=== PATIENT | female | born 1975 | race Caucasian/White ===

== ENCOUNTER 2019-12-02 09:32 | Emergency (ER) | payer OTHER, SELFPAY ==
[2019-12-02 09:32] VITALS: BP 144/95; BP 156/94; PULSE 59; PULSE 66; RESP 16; TEMP 36.1; O2SAT 100; BMI 27.1
--- NOTE | 2019-12-02 09:43 | CT_ITS ---
STUDY: CT ABDOMEN AND PELVIS WITH CONTRAST REASON FOR EXAM: Female, 44 years old. LLQ PAIN, NAUSEA SINCE 7 AM RADIATION DOSAGE (If Supplied By Facility): CTDIvol = ( 12.17 ) mGy, DLP = ( 543.15 ) mGycm TECHNIQUE: Transaxial images were obtained from the dome of the diaphragm to the symphysis pubis with oral contrast. Oral and amp; IV Gastrografin and amp; 100mL Isovue-300 was administered. Sagittal and coronal images were reconstructed. Individualized dose optimization techniques were used for this CT. COMPARISON: None. FINDINGS: Minimal increased markings at the lung bases suggestive of mild bibasilar atelectasis. The visualized portions of the heart are within normal limits. There is a 1.5 cm x 1 cm well-defined hypodense nodule suggestive of a cyst in the medial aspect of the right lobe of the liver adjacent to the inferior vena cava. A similar-appearing nodular density measuring 1.1 cm x 1.1 cm is seen along the peripheral anterior aspect of the right lobe of the liver adjacent to the falciform ligament. Mild degree of periportal edematous changes in the liver. Normal gallbladder and extrahepatic biliary system. Normal spleen. Normal pancreas. Normal bilateral adrenal glands. Normal right kidney. Small perinephric fluid collection. Mild left hydronephrosis and nodular due to a 2 mm calculus at the left ureterovesical junction as it enters the urinary bladder. Normal visualized stomach. Normal small intestine. Normal colon. The appendix is visualized and appears normal. Normal abdominal aorta. Normal inferior vena cava. Normal retroperitoneum. Normal urinary bladder. Small follicles are seen in the left ovary. Prominent vascular structures are seen surrounding the uterus more prominent on the left side. There is a small umbilical hernia containing fat. Normal osseous structures. CT/Abdomen/Pelvis WITH Contrast IMPRESSION: Mild degree of left hydronephrosis and hydroureter due to a 2 mm calculus at the left ureterovesical junction as it enters the urinary bladder. Mild degree of the left perinephric fluid collection. 2. Cystic nodules are seen in the right lobe of the liver as described. Mild degree of periportal edematous changes. Electronically Signed: Pierre Abreu, at 12:07 EDT , Service support ,
--- NOTE | 2019-12-02 09:45 | ED.DCSUM_ITS ---
History of Present Illness Chief Complaint: Abd Pain Narrative: Patient is a 44-year-old female who presents with abdominal pain. This began a few hours before presentation. She complains of mid left and left lower quadrant abdominal pain. She also complains of diarrhea. She describes her pain as a base-like pressure-like pain with episodes of severe cramping that radiates through the rest of the abdomen. This does not radiate into the back. She denies urinary symptoms such as dysuria or frequency. She denies history of prior similar symptoms. She does report a history of tubal ligation no other abdominal surgeries. She denies fever. She does complain of nausea without vomiting. Past Medical History - Allergies and Home Meds Allergies/Adverse Reactions: Allergies No Known Allergies Allergy (Verified 12/02/19 09:34) Past Medical History: None Surgical History: - - tubal ligation Review of Systems All systems negative except as indicated General: Denies: Fever Eyes: Denies: Visual changes - bilaterally Cardiovascular: Denies: Chest pain Respiratory: Denies: Dyspnea Gastrointestinal: Reports: Abdominal pain, Nausea, Diarrhea. Denies: Vomiting Musculoskeletal: Denies: Myalgias, Arthralgias Skin: Denies: Rash Neurological: Denies: Headache Hematologic: Denies: Easy bruising Allergy: Denies: Uticaria Physical Exam Vital Signs/Narrative: Vital Signs Temp Pulse Resp BP Pulse Ox 12/02/19 09:32 96.9 F L 59 L 16 156/94 H 100 Inital Vital Signs reviewed: Yes General: Well nourished Head: Normocephalic Eyes: EOMI ENT: Moist mucous membranes Neck: Supple Cardiovascular: Regular rate, Regular rhythm Respiratory: No distress, CTA bilaterally Abdomen: Soft, Nondistended, Tender, - - Patient does have mid left sided and left lower quadrant abdominal tenderness no guarding no rebound. She is nondistended. Negative for: Nontender, Guarding, Rebound tenderness Skin: Normal color Neurological: Alert Psychological: Normal affect Diagnostic/Tx/Re-eval Impressions Abdomen/Pelvis CT 12/02/19 09:43 IMPRESSION: Mild degree of left hydronephrosis and hydroureter due to a 2 mm calculus at the left ureterovesical junction as it enters the urinary bladder. Mild degree of the left perinephric fluid collection. 2. Cystic nodules are seen in the right lobe of the liver as described. Mild degree of periportal edematous changes. Electronically Signed: Pierre Abreu, at 12:07 EDT , Service support , 12/02/19 09:43 Abdomen/Pelvis WITH Contrast [CT] Stat Laboratory Results 12/02/19 12/02/19 12/02/19 10:00 10:00 10:28 WBC 16.1 H RBC 4.87 Hgb 13.2 Hct 41.1 MCV 84.4 MCH 27.1 MCHC 32.1 RDW Std Deviation 44.4 H RDW Coeff of Chris 14.6 Plt Count 326 MPV 8.8 Immature Gran % (Auto) 0.600 Neut % (Auto) 84.7 H Lymph % (Auto) 9.2 L [place] % (Auto) 5.0 Eos % (Auto) 0.2 Baso % (Auto) 0.3 Absolute Neuts (auto) 13.6 H Absolute Lymphs (auto) 1.48 Nucleated RBC % 0 Sodium 140 Potassium 3.8 Chloride 108 H Carbon Dioxide 27.0 Anion Gap 5 BUN 14 Creatinine 0.93 Estim Creat Clear Calc 71.11 Est GFR (MDRD) Af Amer 84 Est GFR (MDRD) Non-Af 69 BUN/Creatinine Ratio 15.1 Glucose 110 H Calcium 9.7 Total Bilirubin 0.50 AST 24 ALT 26 Alkaline Phosphatase 66 Total Protein 7.9 Albumin 4.1 Globulin 3.8 Albumin/Globulin Ratio 1.1 Lipase 128 Urine Color Straw Urine Clarity Sl. Cloudy Urine pH 8.0 Ur Specific [place] 1.015 Urine Protein 15 H Urine Glucose (UA) Normal Urine Ketones 50 H Urine Occult Blood Negative Urine Nitrite Negative Urine Bilirubin Negative Urine Urobilinogen Normal Ur Leukocyte Esterase 25 H Urine RBC 0 SEEN Urine WBC 0-5 SEEN Ur Squamous Epith Cells 0-5 SEEN Urine Bacteria 2+ Urine Mucus 0 SEEN - Medical Decision Making Patient was symptomatically treated with IV fluids, morphine, and Zofran. Initial differential included colonic pathology such as colitis or diverticulitis as well as urinary pathology such as ureterolithiasis. She underwent the above diagnostic work-up including laboratory studies and CT imaging. CT imaging does show a 2 mm distal left UVJ calculus. Patient was given a second dose of morphine and pain returned. After CT imaging results returned she was given IV Toradol with market relief of symptoms. She currently rates that her pain is at a tolerable level and she does feel she can manage at home. She does have bacteriuria although she does not have pyuria. Given her leukocytosis we will treat for possible infection as well. Patient was prescribed Bactrim and Percocet and referred to urology. She was instructed on specific signs and symptoms to monitor for and conditions which should prompt immediate return to the emergency department for reevaluation. Otherwise she can follow-up as an outpatient. Patient and family agreeable to this plan and the patient was discharged. ED Disposition - Plan for ED Patient: Disposition: Home or Assisted Living Diagnosis: Ureterolithiasis Instructions: ED Renal Stone w Colic Prescriptions: Smz/Tmp Ds [Bactrim Ds] 1 tab PO BID #14 tab Prescription Printed Oxycodone HCl/Acetaminophen [Percocet 5/325] 1 tab PO Q6H PRN PRN 3 Days #12 tab PRN Reason: Pain Prescription Printed
[2019-12-02] MEDS: 0.9% Normal Saline 1,000 ML 1000 ML IV (09:55)
[2019-12-02] MEDS: Ondansetron 4 MG/2 ML Vial IV (09:58)
[2019-12-02] MEDS: Morphine 4 MG/ML Syringe IV ×2 (09:58→10:37)
[2019-12-02 10:12] LABS: Absolute Lymphocyte Count 1.48 X10^3/uL (0.83-4.51); Absolute Neutrophil Count 13.6 X10^3/uL (2.0-7.7); Basophil# 0.05 X10^3/uL; Basophil% 0.3 % (0-1); Eosinophil# 0.04 X10^3/uL; Eosinophils% 0.2 % (0-5); Hematocrit 41.1 % (37-47); Hemoglobin 13.2 g/dL (12.0-15.0); Lymphocyte # 1.48 X10^3/ul (4.0); Lymphocyte % 9.2 % (19-41); Mean Corp Hgb Conc 32.1 g/dL (32-36); Mean Corpuscular Hgb 27.1 pg (27.0-32.0); Mean Corpuscular Volume 84.4 fL (81-99); Mean Platelet Vol. 8.8 fl (6.2-12.0); NRBC Flagged by Analyzer 0 % (0-5); Neutrophil % 84.7 % (47-70); Platelet Count 326 K/mm3 (150-450); RBC Distribution Width CV 14.6 % (11.6-14.6); RBC Distribution Width SD 44.4 fl (35.1-43.9); Red Blood Count 4.87 M/mm3 (4.2-5.4); White Blood Count 16.1 K/mm3 (4.4-11.0)
[2019-12-02 10:27] LABS: ALB/GLOB Ratio 1.1 RATIO (0.9-2.4); AST(SGOT) 24 U/L (15-37); Alanine Aminotransfer ALT/SGPT 26 U/L (13-56); Albumin, Serum 4.1 g/dL (3.2-5.0); Alkaline Phosphatase 66 U/L (45-117); Anion Gap 5 (5-15); BUN 14 mg/dL (7-18); BUN/Creat Ratio 15.1 RATIO (10-20); Calcium,Total 9.7 mg/dL (8.5-10.1); Chloride 108 mmol/L (98-107); Creatinine, Serum 0.93 mg/dL (0.55-1.02); EST Glomerular Filtration Rate 69 mL/min (>60); Est Glom Filt Rate - Afr Amer 84 mL/min (>60); Estimated Creatinine Clearance 71.11 ml/min; Globulin 3.8 g/dL (2.2-4.2); Glucose 110 mg/dL (74-106); Lipase 128 U/L (73-393); Potassium 3.8 mmol/L (3.5-5.1); Protein, Total 7.9 g/dL (6.4-8.2); Sodium Level 140 mmol/L (136-145)
[2019-12-02 10:32] VITALS: BP 162/86; PULSE 78; RESP 16; TEMP 36.7; O2SAT 100
[2019-12-02 10:34] LABS: Mucous, Urine 0 SEEN /hpf (<or=2+); Red Blood Cells-Urine 0 SEEN /hpf (0-5)
[2019-12-02 10:38] LABS: Color, Urine Straw (Yellow); Glucose, Dipstick Normal (Normal); Ketone-Dipstick 50 mg/dl (Negative); Leukocyte Esterase-Dipstick 25 /ul (Negative); Nitrite-Dipstick Negative (Negative); Occult Blood-Urine Negative /ul (Negative); Protein-Dipstick 15 mg/dl (Negative); Specific Gravity, Urine 1.015 (1.002-1.030); Urine Bilirubin Dipstick Negative (Negative); Urine Clarity Sl. Cloudy (Clear); Urine Urobilinogen Normal (Normal)
[2019-12-02 11:07] LABS: Bacteria 2+ /hpf (None Seen); Squamous Epithelial Cells - UA 0-5 SEEN /hpf (5-10); White Blood Cells 0-5 SEEN /hpf (0-5)
[2019-12-02 11:32] VITALS: BP 155/74; PULSE 82; RESP 16; TEMP 36.5; O2SAT 100
[2019-12-02] MEDS: Ketorolac 30 MG/ML Syringe IV (12:48)
--- NOTE | 2019-12-02 13:14 | ED.DEP ---
ED Disposition - Plan for ED Patient: Disposition: Home or Assisted Living Diagnosis: Ureterolithiasis Instructions: ED Renal Stone w Colic Prescriptions: Smz/Tmp Ds [Bactrim Ds] 1 tab PO BID #14 tab Prescription Printed Oxycodone HCl/Acetaminophen [Percocet 5/325] 1 tab PO Q6H PRN PRN 3 Days #12 tab PRN Reason: Pain Prescription Printed Referrals: Care Physician,No Primary [Primary Care Provider] - Ant Muñoz MD [STAFF PHYSICIAN] -
[2019-12-02 13:21] VITALS: BP 133/81; PULSE 82; RESP 16; O2SAT 100
== END 2019-12-02 13:22 | disposition home or self-care (01) ==
PROVIDERS: Emergency Provider Emergency Medicine
DX: N20.1 Calculus of ureter (principal)
CPT/HCPCS: 74177; 80053; 81001; 83690; 85025; 87086; 87088; 96374; 96375; 96376; 99283; J7030; Q9967; A4216; J2405

== ENCOUNTER → 2020-08-31 12:17 | Outpatient (CLI) | payer OTHER, SELFPAY ==
[2020-08-31 08:42] VITALS: BMI 26.5
[2020-09-02 14:16] LABS: HPV APTIMA, High Risk Negative (Negative)
== END ==
PROVIDERS: Referring Provider Nurse Practitioner Women's Health; Visit Provider Nurse Practitioner Women's Health
DX: Z12.4 Encounter for screening for malignant neoplasm of cervix (principal)
CPT/HCPCS: 87624; 88175; G0145

== ENCOUNTER → 2020-09-10 10:25 | Outpatient (CLI) | payer SELFPAY, OTHER ==
[2020-08-31 08:42] VITALS: BMI 26.5
--- NOTE | 2020-09-10 10:27 | US_ITS ---
STUDY: ULTRASOUND OF THE FEMALE PELVIS - COMPLETE REASON FOR EXAM: Female, 45 years old. bleeding LMP: 09/08/2020 TECHNIQUE: Transabdominal and Transvaginal TECHNICAL QUALITY: Adequate. COMPARISON: None. FINDINGS: The uterus is anteverted and is in a midline position. The uterus measures 9.0 x 5.2 x 4.6 cm. There is a Nabothian cyst of the cervix. The endometrium measures 3 mm in thickness, and is hyperechoic. There is no demonstrated endometrial mass. There is no demonstrated myometrial mass. I.U.D. - The patient does not have an I.U.D. The right ovary is visualized. The right ovary measures 2.9 x 1.8 x 1.1 cm. There is no right ovarian cyst or ovarian mass. There is no visualized right adnexal mass or complex lesion. There is normal arterial and normal venous vascularity. The left ovary is visualized. The left ovary measures 2.4 x 2.2 x 1.2 cm. There is no left ovarian cyst or ovarian mass. There is no visualized left adnexal mass or complex lesion. There is normal arterial and normal venous vascularity. There is no fluid in the cul-de-sac. The pre void volume of the bladder was ml. The post void volume of the bladder was ml. Polycystic ovary disease: No. US/Pelvic (Non ) IMPRESSION: Normal female pelvis. Electronically Signed: Fredy Rubio MD at 16:56 EDT Tel , Service support ,
--- NOTE | 2020-09-10 10:27 | US_ITS ---
STUDY: ULTRASOUND OF THE FEMALE PELVIS - COMPLETE REASON FOR EXAM: Female, 45 years old. bleeding LMP: 09/08/2020 TECHNIQUE: Transabdominal and Transvaginal TECHNICAL QUALITY: Adequate. COMPARISON: None. FINDINGS: The uterus is anteverted and is in a midline position. The uterus measures 9.0 x 5.2 x 4.6 cm. There is a Nabothian cyst of the cervix. The endometrium measures 3 mm in thickness, and is hyperechoic. There is no demonstrated endometrial mass. There is no demonstrated myometrial mass. I.U.D. - The patient does not have an I.U.D. The right ovary is visualized. The right ovary measures 2.9 x 1.8 x 1.1 cm. There is no right ovarian cyst or ovarian mass. There is no visualized right adnexal mass or complex lesion. There is normal arterial and normal venous vascularity. The left ovary is visualized. The left ovary measures 2.4 x 2.2 x 1.2 cm. There is no left ovarian cyst or ovarian mass. There is no visualized left adnexal mass or complex lesion. There is normal arterial and normal venous vascularity. There is no fluid in the cul-de-sac. The pre void volume of the bladder was ml. The post void volume of the bladder was ml. Polycystic ovary disease: No. US/Transvaginal Non- IMPRESSION: Normal female pelvis. Electronically Signed: Fredy Rubio MD at 16:56 EDT Tel , Service support ,
--- NOTE | 2020-09-10 11:15 | BI_ITS ---
MAMMOGRAPHY - BILATERAL SCREENING REASON FOR EXAM: Female, 45 years old. Routine annual screening examination. PERTINENT HISTORY: Non-contributory. TECHNIQUE: Digital bilateral breast attila (3D mammographic acquisition) in the CC and MLO projections. 2-D mediolateral oblique (MLO) and craniocaudad (CC) views of both breasts were obtained. CAD: Full Field Digital Mammography with Computer Added Detection was performed. COMPARISON: None. Baseline examination. FINDINGS: Breast Composition: The breasts are extremely dense, which lowers the sensitivity of mammography. There are no dominant masses or suspicious calcifications. No other significant abnormalities are identified. BI/SCRN MAMM (CAD)W/ATTILA BILAT IMPRESSION: Negative screening mammogram. Yearly followup mammogram recommended. (A) ASSESSMENT CATEGORY: BIRADS Category 1: Negative. A letter regarding these results will be sent to the patient by the facility within 30 days. Approximately 10% of breast cancers are not detected by mammography. A normal mammogram should not delay biopsy of a clinically suspicious abnormality. [id number] Electronically Signed: Pierre Abreu MD at 12:23 EDT , Service support ,
== END ==
PROVIDERS: Referring Provider Nurse Practitioner Women's Health; Visit Provider Nurse Practitioner Women's Health
DX: N92.0 Excessive and frequent menstruation with regular cycle (principal); N85.2 Hypertrophy of uterus; Z12.31 Encounter for screening mammogram for malignant neoplasm of breast
CPT/HCPCS: 76830; 76856; 77063; 77067

== ENCOUNTER 2024-04-10 18:28 | Observation (INO) | payer OTHER, SELFPAY ==
[2024-04-10] VITALS (13 sets, daily range): BP systolic 90–121; BP diastolic 60–98; PULSE 73–152; RESP 12–18; TEMP 36.8–37.5; O2SAT 93–100; BMI 30.1; BMI 32.5
--- NOTE | 2024-04-10 18:50 | EDS_ITS ---
HPI HPI - GI History of Present Illness Chief Complaint: Abd Pain Informant: patient and spouse/S.O. Narrative Narrative: 57-year-old female brought to the emergency department for the evaluation of fever and diarrhea. Patient states that since this morning she has had frequent diarrhea. She notes an intermittent fever has been taking Tylenol for that. She notes that she feels her heart racing. She states is very typical for her in the morning her heart rate to be normal but by the evening it is to be beating fast. She denies any vomiting. She notes pain on the left side of her abdomen that is now moved more towards the right side. She denies any urinary symptoms. She has been trying to orally hydrate. PFSH PFS Home Medications ?Medication ?Instructions ?Recorded ?Last Taken ?Type NK 04/10/24 Unknown History Allergy/AdvReac Type Severity Reaction Status Date / Time No Known Allergies Allergy Verified 04/10/24 18:29 Social History household members: spouse and children number of children: 6 current occupation: [employer] history of recent travel: No sexually active: Yes Smoking Status: Never smoker alcohol intake: never substance use type: does not use well-balanced diet: daily or most days what type of physical activity do you participate in: other frequency: 5-6 times per week seatbelt use: always do you feel safe at home: Yes additional social history: - Sandro SAL [facility]ORON ED Constitutional Constitutional ED: Reports chills and fever(s); Denies weight loss Eyes Eyes: Denies change in vision or diplopia ENT ENT ED: Denies ear pain, rhinorrhea or sore throat Cardiovascular Cardiovascular: Denies chest pain, orthopnea, palpitations or racing heartbeat Respiratory/Chest Respiratory/Chest: Denies cough, dyspnea or orthopnea Gastrointestinal Gastrointestinal: Reports abdominal pain and diarrhea; Denies nausea or vomiting Genitourinary Genitourinary ED: Denies dysuria, hematuria or urinary frequency Musculoskeletal Musculoskeletal: Denies arthralgias or myalgias Integumentary Denies abscess or rash Neurologic Neurologic: Denies headache(s) or weakness Psychiatric Psychiatric: Denies anxiety, depression, suicidal ideation or suicidal thoughts Endocrine Endocrinology: Denies polydipsia, polyphagia or polyuria Allergic/Immunologic Allergic/Immunologic ED: Denies mouth swelling, tongue swelling or urticaria EXAM Physical Exam Const Vital Signs: 04/10/24 18:28 04/10/24 20:00 04/10/24 20:28 Temperature 99.5 F H 98.7 F Temperature Source Oral Pulse Rate 152 H 114 H 114 H Respiratory Rate 18 18 18 Blood Pressure 99/73 121/81 H 121/81 H Blood Pressure Mean 81 94 94 Pulse Ox 99 100 100 Oxygen Delivery Method Room Air Room Air 04/10/24 20:30 Temperature 98.7 F Temperature Source Oral Pulse Rate 114 H Respiratory Rate 18 Blood Pressure 121/81 H Blood Pressure Mean 94 Pulse Ox 100 Oxygen Delivery Method Room Air Positive well nourished and well developed General Appearance ED: well developed HEENT Reports normocephalic, head/scalp atraumatic and moist mucous membranes Eyes PERRL and EOMs intact bilaterally Neck no lymphadenopathy, supple and no JVD Resp normal respiratory effort and clear to auscultation bilaterally Cardio regular rate, regular rhythm and no murmurs Rate: tachycardic GI normal to inspection, nondistended, normoactive bowel sounds and non-tender Palpation: soft and tender RLQ; Negative for guarding or rebound tenderness present Back/Spine no CVA tenderness and normal ROM Extremity normal to inspection General Extremety ED: Negative for edema General Extremity: Negative for edema Neuro oriented x3 and CN's II-XII intact bilaterally Sensorium / Orientation: alert Motor Exam: strength 5/5 throughout Psych mental status grossly normal Mood & Affect: Negative for depressed or tearful Skin no rashes or lesions noted and no wounds MDM MDM MDM Narrative Medical decision making narrative: Differential diagnosis includes but not limited to viral gastroenteritis/enteritis dehydration cardiac dysrhythmia electrolyte abnormality colitis appendicitis diverticulitis Patient's EKG demonstrates a sinus tachycardia ventricular rate of 122 bpm. White count is 4.9 with 91.8 neutrophils. Potassium slightly low at 3.2 total bilirubin is curiously elevated 2.3 and direct bilirubin 0.61. Other LFTs are within normal limits. CT of the abdomen pelvis demonstrates changes consistent with acute appendicitis. Please see radiologist read for full details. Discussed the case with the surgeon on-call Dr. Plascencia. Patient was given a dose of Zosyn. She has not had anything to eat since around 1400 hrs. and that was some pretzels. Patient and her were updated on plan are comfortable with it. History & Record Review Discussion w/independent historian: Patient and Family Lab Data Attestation: I reviewed the patient's lab results. Labs: Laboratory Results - last 24 hr 04/10/24 18:50 WBC 4.9 RBC 4.88 Hgb 13.3 Hct 39.4 MCV 80.7 L MCH 27.3 MCHC 33.8 RDW Std Deviation 41.6 RDW Coeff of Chris 14.3 Plt Count 292 MPV 8.7 Immature Gran % (Auto) 0.400 Neut % (Auto) 91.8 H Lymph % (Auto) 6.8 L [place] % (Auto) 0.2 Eos % (Auto) 0.4 Baso % (Auto) 0.4 Absolute Neuts (auto) 4.5 Absolute Lymphs (auto) 0.33 L Nucleated RBC % 0 Sodium 136 Potassium 3.2 L Chloride 107 Carbon Dioxide 20.0 L Anion Gap 10 BUN 8 Creatinine 0.77 Estim Creat Clear Calc 74.97 Est GFR (MDRD) Af Amer 102 Est GFR (MDRD) Non-Af 85 BUN/Creatinine Ratio 10.4 Glucose 105 Calcium 9.4 Total Bilirubin 2.30 H Direct Bilirubin 0.61 H AST 37 ALT 31 Alkaline Phosphatase 114 Total Protein 7.0 Albumin 3.6 Globulin 3.4 Radiography Diagnostic Testing: Clinical Impression(s) from Imaging Studies Abdomen/Pelvis CT 04/10/24 19:25 IMPRESSION: 1. Acute retrocecal appendicitis. Wall thickening of the posterior margin of the cecum at its origin. Multiple presumed appendicoliths in the origin. Maximum appendix diameter 1.1 cm. Hazy surrounding soft tissue stranding.Trace adjacent fluid and mild adjacent fascial thickening. 2. Mild intrapelvic fluid. 3. No perforation, discrete drainable abscess or free intraperitoneal air. 4. Right nephrolithiasis, 2.4 mm nonobstructing stone, stable. 5. Collapsed left ovarian follicle. Electronically Signed: Hawa Castañeda MD at 20:27 EST , EKG Initial EKG: Attestation: I personally reviewed and interpreted this EKG as follows: Comments: Sinus tachycardia ventricular rate of 122 bpm. PAC noted Discharge Plan Dx/Rx/DC Orders Clinical Impression: Acute appendicitis, Diarrhea, Sinus tachycardia Disposition Disposition: Acute Care [facility]
[2024-04-10] MEDS: 0.9% Normal Saline (1000mL) 1,000 ML 1000 ML IV (18:59)
[2024-04-10 19:12] LABS: Absolute Lymphocyte Count 0.33 X10^3/uL (0.83-4.51); Absolute Neutrophil Count 4.5 X10^3/uL (2.0-7.7); Basophil# 0.02 X10^3/uL; Basophil% 0.4 % (0-1); Eosinophil# 0.02 X10^3/uL; Eosinophils% 0.4 % (0-5); Hematocrit 39.4 % (37-47); Hemoglobin 13.3 g/dL (12.0-15.0); Lymphocyte # 0.33 X10^3/ul (0.83-4.51); Lymphocyte % 6.8 % (19-41); Mean Corp Hgb Conc 33.8 g/dL (32-36); Mean Corpuscular Hgb 27.3 pg (27.0-32.0); Mean Corpuscular Volume 80.7 fL (81-99); Mean Platelet Vol. 8.7 fl (6.2-12.0); Monocyte# 0.01 X10^3/uL; Monocyte% 0.2 % (0-10); NRBC Flagged by Analyzer 0 % (0-5); Neutrophil # 4.48 X10^3/uL (2.7-7.7); Neutrophil % 91.8 % (47-70); POSITIVE DIFFERENTIAL YES; Platelet Count 292 K/mm3 (150-450); RBC Distribution Width CV 14.3 % (11.6-14.6); RBC Distribution Width SD 41.6 fl (35.1-43.9); Red Blood Count 4.88 M/mm3 (4.2-5.4); White Blood Count 4.9 K/mm3 (4.4-11.0)
[2024-04-10 19:23] LABS: AST(SGOT) 37 U/L (15-37); Alanine Aminotransfer ALT/SGPT 31 U/L (13-56); Albumin, Serum 3.6 g/dL (3.2-5.0); Alkaline Phosphatase 114 U/L (45-117); Anion Gap 10 (5-15); BUN 8 mg/dL (7-18); BUN/Creat Ratio 10.4 RATIO (10-20); Bilirubin, Direct 0.61 mg/dL (0.00-0.30); Calcium,Total 9.4 mg/dL (8.5-10.1); Chloride 107 mmol/L (98-107); Creatinine, Serum 0.77 mg/dL (0.55-1.02); EST Glomerular Filtration Rate 85 mL/min (>60); Est Glom Filt Rate - Afr Amer 102 mL/min (>60); Estimated Creatinine Clearance 74.97 ml/min; Globulin 3.4 g/dL (2.2-4.2); Glucose 105 mg/dL (74-106); Potassium 3.2 mmol/L (3.5-5.1); Sodium Level 136 mmol/L (136-145)
--- NOTE | 2024-04-10 19:25 | CT_ITS ---
EXAM: CT ABDOMEN AND PELVIS WITH INTRAVENOUS CONTRAST CLINICAL INDICATION: abdominal pain TECHNIQUE: Helically acquired images were obtained of the abdomen and pelvis with intravenous contrast. This CT exam was performed using one or more of the following dose reduction techniques: automated exposure control, adjustment of the mA and/or kV according to patient size, and/or use of iterative reconstruction technique. CONTRAST: IV 100mL Isovue-370 RADIATION DOSE: CTDIvol = 12.28 mGy, DLP = 702.86 mGy-cm COMPARISON: December 02, 2019. FINDINGS: LOWER THORAX: See below. ABDOMEN: LIVER: Slight low-attenuation in the left lobe of the liver near the fissure of the falciform ligament, presumed focal fatty infiltration, it was better seen on prior exam. There is a well-circumscribed 1.2 cm hepatic cyst at the dome of the liver adjacent to the IVC, similar to 2020. GALLBLADDER AND BILE DUCTS: Unremarkable. No calcified gallstones. No gallbladder distention or wall edema. No intra- or extrahepatic biliary ductal dilation. PANCREAS: Unremarkable. No focal cystic or solid mass. SPLEEN: Unremarkable. Normal size without focal cystic or solid mass. ADRENALS: Unremarkable. No nodules. KIDNEYS AND URETERS: Stable nonobstructing small stone in the mid right kidney. Previously seen left hydronephrosis and tiny left UVJ stone are no longer present. STOMACH AND BOWEL: Moderate gas and minimal fluid in the stomach no dilated small bowel. Fluid and mild gas in the right colon mild gas in the mid to distal colon and rectum. No focal inflammatory change. PELVIS: APPENDIX: There is obvious retrocecal appendicitis. With thick-walled peripherally enhance 1.1 cm retrocecal appendix surrounded by hazy soft tissue stranding, with adjacent fascial thickening and trace associated fluid. There is suspicion of at least 3 or 4 small appendicoliths at the origin of the appendix and the posterior margin of the cecum, faintly dense, the largest roughly 6 mm. BLADDER: Unremarkable. REPRODUCTIVE: Mildly heterogeneous uterus, 9.5 cm x 5.4 cm x 6.2 cm with hypodense 1 cm endometrium. Small collapsed follicle in the left ovary, 1.9 cm x 0.8 cm. ABDOMEN and PELVIS: INTRAPERITONEAL SPACE: Mild free fluid in the pelvis, tiny nonobstructing stone in the right kidney, no hydronephrosis or ureter stone. No free air. BONES/JOINTS: See above. SOFT TISSUES: See above. VASCULATURE: Minimal vascular crowding in the posterior lungs, no convincing basilar infiltrate. LYMPH NODES: Unremarkable. No enlarged lymph nodes. CT/Abdomen/Pelvis W IV Cont ONLY IMPRESSION: 1. Acute retrocecal appendicitis. Wall thickening of the posterior margin of the cecum at its origin. Multiple presumed appendicoliths in the origin. Maximum appendix diameter 1.1 cm. Hazy surrounding soft tissue stranding.Trace adjacent fluid and mild adjacent fascial thickening. 2. Mild intrapelvic fluid. 3. No perforation, discrete drainable abscess or free intraperitoneal air. 4. Right nephrolithiasis, 2.4 mm nonobstructing stone, stable. 5. Collapsed left ovarian follicle. Electronically Signed: Hawa Castañeda MD at 20:27 EST ,
[2024-04-10] MEDS: Piperacil/Tazobactam 4.5 GM in 0.9% Normal Saline (100mL MB+) 100 ML IV (20:26)
--- NOTE | 2024-04-10 20:56 | HP.PCM_ITS ---
HPI - General General Date of Admission: 04/10/24 Date of Service: 04/10/24 HPI Narrative MARIANNE TEJEDA, is a 49 F who presented to the [facility] emergency department this evening with abdominal pain which began around 6 AM this morning. She states that she has not been feeling well for the past couple of days. She has had some issues with diarrhea. She woke up this morning with some left lower quadrant abdominal pain. Throughout the course of the day today, her pain seemed to become much more intense and isolated to the right lower quadrant. She was seen in the emergency department this evening. Blood work was performed. Her white blood cell count was normal. It was incidentally noted that her bilirubin was elevated but none of the other LFTs were abnormal. She has never had any liver issues in the past. CT scan of the abdomen pelvis was performed. This revealed findings consistent with acute appendicitis. At this point a general surgery consult was obtained by the emergency department. I saw the patient in the ER. Her pain was located in the right lower quadrant. She did admit to some nausea but no vomiting. No fevers or chills however her temperature in the emergency room was 99.5 PFSH Home Medications ?Medication ?Instructions ?Recorded ?Last Taken ?Type NK 04/10/24 Unknown History Allergy/AdvReac Type Severity Reaction Status Date / Time No Known Allergies Allergy Verified 04/10/24 18:29 Social History household members: spouse and children number of children: 6 current occupation: [employer] history of recent travel: No sexually active: Yes Smoking Status: Never smoker alcohol intake: never substance use type: does not use well-balanced diet: daily or most days what type of physical activity do you participate in: other frequency: 5-6 times per week seatbelt use: always do you feel safe at home: Yes additional social history: - Sandro SAL Constitutional Constitutional: Reports as per HPI Eyes Eyes: Reports systems reviewed and no addt'l complaints, except as documented ENT HEENT: Reports systems reviewed and no addt'l complaints, except as documented Cardiovascular Cardiovascular: Reports systems reviewed and no addt'l complaints, except as documented Respiratory/Chest Respiratory/Chest: Reports systems reviewed and no addt'l complaints, except as documented Gastrointestinal Gastrointestinal: Reports systems reviewed and no addt'l complaints, except as documented Genitourinary Genitourinary: Reports systems reviewed and no addt'l complaints, except as documented Musculoskeletal Musculoskeletal: Reports systems reviewed and no addt'l complaints, except as documented Vital Signs Vital Signs Vital Signs: 04/10/24 18:28 04/10/24 20:00 04/10/24 20:28 Temperature 99.5 F H 98.7 F Temperature Source Oral Pulse Rate 152 H 114 H 114 H Respiratory Rate 18 18 18 Blood Pressure 99/73 121/81 H 121/81 H Blood Pressure Mean 81 94 94 Pulse Ox 99 100 100 Oxygen Delivery Method Room Air Room Air 04/10/24 20:30 Temperature 98.7 F Temperature Source Oral Pulse Rate 114 H Respiratory Rate 18 Blood Pressure 121/81 H Blood Pressure Mean 94 Pulse Ox 100 Oxygen Delivery Method Room Air Weight Weight: 149 lb Body Mass Index (BMI) 30.1 Physical Exam Narrative She is alert and oriented x 3. She is in no acute distress. Her head is normocephalic and atraumatic. Pupils are equal round and reactive to light. Abdomen is soft and mildly distended. She does have some mild to moderate tenderness to palpation in the right lower quadrant. No rebound or guarding. Results Lab / Micro Data 04/10/24 18:50 04/10/24 18:50 Labs: Laboratory Results - last 24 hr 04/10/24 18:50: WBC 4.9, RBC 4.88, Hgb 13.3, Hct 39.4, MCV 80.7 L, MCH 27.3, MCHC 33.8, RDW Std Deviation 41.6, RDW Coeff of Chris 14.3, Plt Count 292, MPV 8.7, Immature Gran % (Auto) 0.400, Neut % (Auto) 91.8 H, Lymph % (Auto) 6.8 L, Wetzel % (Auto) 0.2, Eos % (Auto) 0.4, Baso % (Auto) 0.4, Absolute Neuts (auto) 4.5, Absolute Lymphs (auto) 0.33 L, Nucleated RBC % 0, Sodium 136, Potassium 3.2 L, Chloride 107, Carbon Dioxide 20.0 L, Anion Gap 10, BUN 8, Creatinine 0.77, Estim Creat Clear Calc 74.97, Est GFR (MDRD) Af Amer 102, Est GFR (MDRD) Non-Af 85, BUN/Creatinine Ratio 10.4, Glucose 105, Calcium 9.4, Total Bilirubin 2.30 H, Direct Bilirubin 0.61 H, AST 37, ALT 31, Alkaline Phosphatase 114, Total Protein 7.0, Albumin 3.6, Globulin 3.4 Imaging Radiology Impression Abdomen/Pelvis CT 04/10/24 19:25 IMPRESSION: 1. Acute retrocecal appendicitis. Wall thickening of the posterior margin of the cecum at its origin. Multiple presumed appendicoliths in the origin. Maximum appendix diameter 1.1 cm. Hazy surrounding soft tissue stranding.Trace adjacent fluid and mild adjacent fascial thickening. 2. Mild intrapelvic fluid. 3. No perforation, discrete drainable abscess or free intraperitoneal air. 4. Right nephrolithiasis, 2.4 mm nonobstructing stone, stable. 5. Collapsed left ovarian follicle. Electronically Signed: Hawa Castañeda MD at 20:27 EST Reading Location ID and State: [facility] / [place] Tel , Service support , Assessment & Plan Assessment/Plan (1) Acute appendicitis: PLAN: Plan The patient is a 49-year-old female who presented with right lower quadrant pain. CT scan revealed findings consistent with acute appendicitis. I have offered her a laparoscopic appendectomy as treatment. We discussed the details of the planned procedure including risks benefits and alternatives. She wishes to proceed. Surgery will begin as soon as an operative team and an OR becomes available. As far as her elevated bilirubin, I can certainly evaluate her gallbladder but this may be a primary liver issue. I encouraged her to follow- up with her primary care physician. She also had some sinus tachycardia on initial evaluation which is still persistent. She does relate that she has had some issues of fast heart rate mostly at night. Again I recommend follow-up with PCP for this as well. Charges/Coding Visit Charges Inpatient E&M: 71265 Init Hosp L3
--- NOTE | 2024-04-10 21:12 | PCM.PRE.AN2 ---
ASA Classification* ASA Classification ASA Classification: 2 and E Assessment & Plan Anesthesia* Anesthesia Assessment Anesthesia Assessment: Discussed sedation and/or anesthesia options, risks, benefits, and alternatives with patient/parents/legal guardian/POA. Questions invited. The patient/parents/legal guardian/POA seems to understand and agrees to proceed with anesthesia plan. Reviewed the physical assessment, medical history, allergy history and patient home medications list prior to surgery/procedure/anesthetic and documented any changes. Performed airway and anesthesia risk assessments. Anesthesia Type Anesthesia Type: General History Source History Obtained from:: Patient and Chart Anesthesia Focused Assessment* Temperature: 98.7 F Pulse Rate: 114 Blood Pressure: 121/81 Respiratory Rate: 18 Pulse Ox: 100 Oxygen Delivery Method: Room Air Airway Assessment Mouth opens: >3 cm Mallampati Score: III Teeth Condition: Missing (Missing left lower molar.) Neck Range of motion (ROM): Full ROM Focused Labs Anesthesia Preop lab: CBC WBC 4.9 K/mm3 (4.4-11.0) 04/10/24 18:50 RBC 4.88 M/mm3 (4.2-5.4) 04/10/24 18:50 Hgb 13.3 g/dL (12.0-15.0) 04/10/24 18:50 Hct 39.4 % (37-47) 04/10/24 18:50 Plt Count 292 K/mm3 (150-450) 04/10/24 18:50 CHEMISTRY Potassium 3.2 mmol/L (3.5-5.1) L 04/10/24 18:50 Sodium 136 mmol/L (136-145) 04/10/24 18:50 BUN 8 mg/dL (7-18) 04/10/24 18:50 Creatinine 0.77 mg/dL (0.55-1.02) 04/10/24 18:50 Glucose 105 mg/dL (74-106) 04/10/24 18:50 COAG Pre-Assessment Diagnosis/Proposed Procedure Planned Operative Procedure(s): Laparoscopic appendectomy Anesthesia History 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 When Was Last Pacemaker Check QUESTION #4 FULL TEXT: You/Your Family Experience fever (hyperthermia) with Anesthesia Last Oral Intake Last Oral intake: Last Oral Intake NPO since Meds taken in AM with sips of water? Meds patient instructed to take am of surgery Any additional information?: Yes NPO since: 14:00 PONV PONV - manufacturing quality manager: PONV - manufacturing quality manager Female HX of Motion Sickness HX of N/V After Surgery Non-Smoker Duration of Surgery greater than 60 minutes Number of Risk Factors PONV Score Height & Weight Height & Weight: Anesthesia: Height & Weight Height 4 ft 11 in 04/10/24 18:28 Weight: 67.585 kg 04/10/24 18:28 Body Mass Index (BMI) 30.1 04/10/24 18:28 Respiratory Assessment Respiratory Assessment - manufacturing quality manager: Respiratory Tract Infection Hx - manufacturing quality manager Hx Respiratory Tract Infection Any additional information?: Yes Hx Respiratory Tract Infection: No STOP Sleep Apnea STOP Sleep Apnea - manufacturing quality manager: STOP Sleep Apnea - manufacturing quality manager Hx Hypertension Hx Sleep Apnea CPAP BIPAP Do you snore loudly (louder than talking or can be heard Do you often feel tired/ fatigued/ sleepy during daytime? Has anyone observed you stop breathing during sleep? STOP Results QUESTION #5 FULL TEXT : Do you snore loudly (louder than talking or can be heard through closed doors)? 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 Specify any problems Hx of Preganancy in last 3 Months Nurse Filling Out Transfusion & Questions: Date: Time: Patient unable to answer at this time (ie. confused, unrespo /Reproduction History /Reproductive History - manufacturing quality manager: /Reproductive Hx- manufacturing quality manager Hx Now Gestational Age (in weeks): EDC: Hx Hx Para Hx Section SAB No 08/31/20 08:42 PFSH Home Medications ?Medication ?Instructions ?Recorded ?Last Taken ?Type NK 04/10/24 Unknown History Allergy/AdvReac Type Severity Reaction Status Date / Time No Known Allergies Allergy Verified 04/10/24 18:29 Surgical History (Updated 04/10/24 @ 21:[address] Stuart Goddard MD) S/P dilatation and curettage H/O tubal ligation Social History household members: spouse and children number of children: 6 current occupation: [employer] history of recent travel: No sexually active: Yes Smoking Status: Never smoker alcohol intake: never substance use type: does not use well-balanced diet: daily or most days what type of physical activity do you participate in: other frequency: 5-6 times per week seatbelt use: always do you feel safe at home: Yes additional social history: - Edward Review of Systems (Anesthesia) ROS Narrative System reviewed and no additional complaints, except as documented.
--- NOTE | 2024-04-10 21:15 | APP_PTH ---
PATIENT: MARIANNE TEJEDA LOC: MS3 U#:[id number] AGE/SX: 49/F ROOM: PA320 RE04/10/[address]: Dr. Tito Plascencia MD : 1975 BED: 1 DIS: 04/11/2024 SPEC #: [id number] RECD: 04/11/24 10:19 STATUS: CLARA TRAN #: [id number] NIKITA: 04/10/24 21:[address]: Tito Plascencia DEPT: SURGICAL PATHOLOGY RECD BY: Simon Dalton ENTERED: 04/11/24 11:03 SP TYPE: APPENDIX OTHR DR: No Primary Care Phys Tissues: Appendix, NOS Procedures: Surgery Specimen Level III HEADER OPERATION: Laparoscopic appendectomy PRE-OP DIAGNOSIS: Acute appendicits TISSUE SUBMITTED: Appendix MICROSCOPIC DIAGNOSIS Appendix, appendectomy: Focal acute appendicitis and focal acute periappendicitis. 04/14/2024 MICROSCOPIC DESCRIPTION Slides are reviewed. GROSS DESCRIPTION Received in fixative is one container labeled with the patient's name and designated appendix. The specimen consists of an appendix measuring 6 cm in length and up to 0.7 cm in diameter. The attached periappendiceal adipose tissue measures up to 2 cm in width. Multiple linnette are also noted at both ends. The serosa is congested. No obvious perforation is identified. The lumen contains hemorrhagic material. No fecalith is identified. Customer Account Representative sections are submitted in one cassette. / SJ: 04/11/2024 TC:5 CPT: 45696
[2024-04-10 21:54] LABS: Internal QC Validated? YES +Cl - CLEAR BKGD; Pregnancy, Serum, hCG Quali. NEGATIVE Negative
[2024-04-10] MEDS: Bupiv/Epi 0.25% 30 ML Vial (22:30)
--- NOTE | 2024-04-10 22:39 | OP.PCM_ITS ---
Problems Associated Problem List Diagnoses (1) Acute appendicitis: Procedures Digestive 40xxx-49xxx: 07238 Laparoscopy appendectomy Operative Report (Standard) Operative Information Date of Procedure: 04/10/24 Pre-Operative Diagnosis: Acute appendicitis Post-Operative Diagnosis: Same Surgery/Procedure Performed: Laparoscopic appendectomy trust mail clerk: Yes Voice Teacher: Jake Doan Tasks completed by geological survey field assistant: Closing and Retracting Additional physician's assistant?: No Type of Anesthesia: General and Local RN Documented Start/Stop Times: Operation Date: 04/10/24 21:15 Case Time Anesthesia Start 04/10/24 21:48 Into Room 04/10/24 21:48 Procedure Start 04/10/24 22:06 Procedure End 04/10/24 22:39 Anesthesia End 04/10/24 22:47 Out of Room 04/10/24 22:47 Into Recovery 04/10/24 22:50 Procedure Start Time: 22:06 Procedure Stop Time: 22:39 Select all DRAINS/GRAFTS/IMPLANTS that apply: None Special Medications: Preoperative antibiotics Estimated Blood Loss: 5 mL Specimen collected: Yes Description of specimen(s) removed: Appendix Description of surgery: The patient is a 49-year-old female who is being seen today for acute appendicitis through the emergency room. I offered her a laparoscopic appendectomy as treatment. We discussed the details of the planned procedure and she wished to proceed. The patient was brought to the operative room today following informed consent. Preoperative antibiotics were given and a timeout was performed. She is placed supine on the operative table with arms outstretched on arm boards. General anesthesia was induced. Once adequately sedated her left arm was comfortably tucked at her side. Her abdomen was then prepped and draped in the usual sterile manner. A 5 mm incision was made just below the umbilicus which a 5 mm trocar was placed optically. This trocar was placed without difficulty. The abdomen is then fully insufflated with CO2 gas. A 5 mm 0 degree scope was inserted. There were no signs of bowel or vascular injury. Next another 5 mm trocar was placed under direct visualization in the left lower quadrant. A 12 mm trocar was placed under direct visualization in the left upper quadrant. The patient was then positioned with some roll to the left and was placed into Trendelenburg positioning. The cecum was identified this was grasped with bowel graspers. This was reflected in a cephalad direction. The terminal ileum was reflected medially. In doing so, the appendix was identified. This was clearly thickened. The appendix was grasped near its base and a [place] dissector was used to create a small window in the mesentery. Through this a JOSE R stapler was placed and fired across the base of the appendix flush with the cecum. Next 2 vascular loads on the JOSE R stapler were utilized to transect the mesoappendix. Hemostasis was excellent. Once the specimen was free was placed into a bag and brought out through the 10 mm trocar site. The trocar was then replaced. The right lower quadrant is then copiously irrigated with saline. Staple lines were nicely hemostatic. Next the fascia at the 12 mm trocar site was closed using 0 PDS with the aid of the fascial closure device. The remaining trocars were op ened up and insufflation was allowed to escape. The remaining trocars were then removed. A total of 20 cc of local anesthetic was injected into the incisions. 4-0 Vicryl was then used to close the skin incisions in a running subcuticular manner. Skin glue was applied as dressing. She was then awakened from anesthesia and taken to recovery in good condition. A PLANT ELECTRICAL ENGINEER was utilized as a operations manager assistant. His role included holding the camera and assistance with skin closure. Surgical Findings: Please see operative note Complications Complications: No Admit VTE Documentation VTE Present on Admission: No VTE Mechan Device Prophylaxis: SCD's VTE Pharm Prophylaxis ordered?: No Reason prophylaxis not ordered: Treatment Not Indicated
--- NOTE | 2024-04-10 22:51 | PCM.POST.ANE ---
Anesthesia: Postop Eval I Current Vital Signs Temperature: 99.1 F Pulse Rate: 77 Blood Pressure: 114/98 Respiratory Rate: 16 Pulse Ox: 98 Oxygen Delivery Method: Room Air Assessment Airway patent: Yes Spontaneous unlabored respirations: Yes Mental status: Asleep nausea: No Vomiting: No Anesthesia Complication: No Fluid Hydration Crystalloid volume administer (ml): 800 Total IV fluid infused: 800 Progress Note Anesthesia document: Postop Eval 1 completed: Yes
--- NOTE | 2024-04-10 23:03 | PCM.POSTANE2 ---
Anesthesia Postop Eval I Sum Postop Eval Completion status Anesthesia document: Postop Eval 1 completed: Yes Anesthesia Postop Eval I Summary Anesthesia Postop Eval I Summary: Anesthesia Postop Eval I: Assessment Summary Airway patent Yes 04/10/24 22:53 Spontaneous unlabored Yes 04/10/24 22:53 respirations Mental status Asleep 04/10/24 22:53 nausea No 04/10/24 22:53 Vomiting No 04/10/24 22:53 Anesthesia Postop Eval I: Fluid Summary Crystalloid volume administer 800 04/10/24 22:53 (ml) Colloids volume administered ( ml) Blood Product volume administered (ml) Total IV fluid infused 800 04/10/24 22:53 Anesthesia Postop Eval I: Summary Notes Anesthesia Complication No 04/10/24 22:53 Anesthesia Complication Comment: Post-operative progress note Anesthesia: Postop Eval II Evaluation Mental status: Asleep Pain Level: 0 nausea: No Vomiting: No Complications Anesthesia Complication: No
[2024-04-10] MEDS: 0.9% Saline Lock 10 ML Syringe IV (23:55)
[2024-04-10] MEDS: Ketorolac 30 MG/ML Syringe IV (23:55)
[2024-04-11 01:35] VITALS: BP 94/60; PULSE 99; RESP 16; TEMP 36.9; O2SAT 97
[2024-04-11] MEDS: oxyCODONE 5 MG Tablet PO (03:34)
[2024-04-11 03:35] VITALS: BP 97/61; PULSE 90; RESP 16; TEMP 36.8; O2SAT 98
[2024-04-11] MEDS: Acetaminophen 500 MG Tablet 1000 MG PO (05:52)
[2024-04-11] MEDS: 0.9% Saline Lock 10 ML Syringe IV (05:53)
[2024-04-11] MEDS: Ketorolac 30 MG/ML Syringe IV (05:53)
[2024-04-11 06:05] LABS: Absolute Neutrophil Count 22.6 X10^3/uL (2.0-7.7); Basophil# 0.09 X10^3/uL; Basophil% 0.3 % (0-1); Eosinophil# 2.49 X10^3/uL; Eosinophils% 9.4 % (0-5); Hematocrit 34.7 % (37-47); Hemoglobin 11.3 g/dL (12.0-15.0); Lymphocyte % 1.1 % (19-41); Mean Corp Hgb Conc 32.6 g/dL (32-36); Mean Corpuscular Hgb 27.2 pg (27.0-32.0); Mean Corpuscular Volume 83.4 fL (81-99); Mean Platelet Vol. 8.8 fl (6.2-12.0); Monocyte# 0.66 X10^3/uL; Monocyte% 2.5 % (0-10); NRBC Flagged by Analyzer 0 % (0-5); Neutrophil # 22.56 X10^3/uL (2.7-7.7); Neutrophil % 84.8 % (47-70); POSITIVE DIFFERENTIAL YES; POSITIVE MORPHOLOGY YES; Platelet Count 265 K/mm3 (150-450); RBC Distribution Width CV 14.6 % (11.6-14.6); RBC Distribution Width SD 44.4 fl (35.1-43.9); Red Blood Count 4.16 M/mm3 (4.2-5.4); White Blood Count 26.6 K/mm3 (4.4-11.0)
[2024-04-11 06:17] LABS: Differential Indicated SCAN CRITERIA MET
[2024-04-11 06:33] LABS: ALB/GLOB Ratio 0.9 RATIO (0.9-2.4); AST(SGOT) 25 U/L (15-37); Alanine Aminotransfer ALT/SGPT 32 U/L (13-56); Albumin, Serum 2.8 g/dL (3.2-5.0); Alkaline Phosphatase 56 U/L (45-117); Anion Gap 6 (5-15); BUN 6 mg/dL (7-18); BUN/Creat Ratio 6.2 RATIO (10-20); Calcium,Total 8.4 mg/dL (8.5-10.1); Chloride 116 mmol/L (98-107); Creatinine, Serum 0.97 mg/dL (0.55-1.02); EST Glomerular Filtration Rate 65 mL/min (>60); Est Glom Filt Rate - Afr Amer 79 mL/min (>60); Estimated Creatinine Clearance 60.92 ml/min; Globulin 3.1 g/dL (2.2-4.2); Glucose 146 mg/dL (74-106); Potassium 3.6 mmol/L (3.5-5.1); Protein, Total 5.9 g/dL (6.4-8.2); Sodium Level 142 mmol/L (136-145)
[2024-04-11 07:00] LABS: Differential Comment SCANNED
[2024-04-11 07:32] VITALS: BP 77/44; PULSE 87; RESP 16; TEMP 36.7; O2SAT 97
--- NOTE | 2024-04-11 08:29 | DS.PCM_ITS ---
Providers Date of Admission: 04/10/24 Date of Discharge: 04/11/24 Primary Care Physician: No Primary Care Phys Reason For Visit: APPENDICITIS Diagnosis Discharge Diagnosis (1) Acute appendicitis: Status: Acute Code(s): K35.80 - Unspecified acute appendicitis Plan The patient is a 49-year-old female who presented with right lower quadrant pain. CT scan revealed findings consistent with acute appendicitis. I have offered her a laparoscopic appendectomy as treatment. We discussed the details of the planned procedure including risks benefits and alternatives. She wishes to proceed. Surgery will begin as soon as an operative team and an OR becomes available. As far as her elevated bilirubin, I can certainly evaluate her gallbladder but this may be a primary liver issue. I encouraged her to follow- up with her primary care physician. She also had some sinus tachycardia on initial evaluation which is still persistent. She does relate that she has had some issues of fast heart rate mostly at night. Again I recommend follow-up with PCP for this as well. Medications at Discharge Home Medications oxycodone-acetaminophen 5 mg-325 mg tablet (Percocet) 1 tab PO Q8H PRN pain 3 days #7 tabs 04/11/24 Hospital Course Operations appendectomy Summary of Care Provided Minutes Spent on Discharge: 15 Physical Exam Narrative She is alert and oriented x 3. She is in no acute distress. Head is normocephalic and atraumatic. Abdomen is soft and appropriately tender at the incision sites. Her right lower quadrant pain has resolved. Weight / BMI Weight Weight: 156 lb 1.396 oz Body Mass Index (BMI) 32.5 ABG / Lab / Microbiology Data 04/11/24 05:44 04/11/24 05:44 Laboratory: Laboratory Results - last 24 hr 04/10/24 18:50: WBC 4.9, RBC 4.88, Hgb 13.3, Hct 39.4, MCV 80.7 L, MCH 27.3, MCHC 33.8, RDW Std Deviation 41.6, RDW Coeff of Chris 14.3, Plt Count 292, MPV 8.7, Immature Gran % (Auto) 0.400, Neut % (Auto) 91.8 H, Lymph % (Auto) 6.8 L, Iroquois % (Auto) 0.2, Eos % (Auto) 0.4, Baso % (Auto) 0.4, Absolute Neuts (auto) 4.5, Absolute Lymphs (auto) 0.33 L, Nucleated RBC % 0, Sodium 136, Potassium 3.2 L, Chloride 107, Carbon Dioxide 20.0 L, Anion Gap 10, BUN 8, Creatinine 0.77, Estim Creat Clear Calc 74.97, Est GFR (MDRD) Af Amer 102, Est GFR (MDRD) Non-Af 85, BUN/Creatinine Ratio 10.4, Glucose 105, Calcium 9.4, Total Bilirubin 2.30 H, Direct Bilirubin 0.61 H, AST 37, ALT 31, Alkaline Phosphatase 114, Total Protein 7.0, Albumin 3.6, Globulin 3.4 04/10/24 21:17: Serum , Qual NEGATIVE 04/11/24 05:44: WBC 26.6 H, RBC 4.16 L, Hgb 11.3 L, Hct 34.7 L, MCV 83.4, MCH 27.2, MCHC 32.6, RDW Std Deviation 44.4 H, RDW Coeff of Chris 14.6, Plt Count 265, MPV 8.8, Immature Gran % (Auto) 1.900 H, Neut % (Auto) 84.8 H, Lymph % (Auto) 1.1 L, Iroquois % (Auto) 2.5, Eos % (Auto) 9.4 H, Baso % (Auto) 0.3, Absolute Neuts (auto) 22.6 H, Absolute Lymphs (auto) 0.30 L, Nucleated RBC % 0, Differential Comment SCANNED, Sodium 142, Potassium 3.6, Chloride 116 H, Carbon Dioxide 20.0 L, Anion Gap 6, BUN 6 L, Creatinine 0.97, Estim Creat Clear Calc 60.92, Est GFR (MDRD) Af Amer 79, Est GFR (MDRD) Non-Af 65, BUN/Creatinine Ratio 6.2 L, Glucose 146 H, Calcium 8.4 L, Total Bilirubin 1.30 H, AST 25, ALT 32, Alkaline Phosphatase 56, Total Protein 5.9 L, Albumin 2.8 L, Globulin 3.1, Albumin/Globulin Ratio 0.9 Radiography Diagnostic Testing: Radiology Impression Abdomen/Pelvis CT 04/10/24 19:25 IMPRESSION: 1. Acute retrocecal appendicitis. Wall thickening of the posterior margin of the cecum at its origin. Multiple presumed appendicoliths in the origin. Maximum appendix diameter 1.1 cm. Hazy surrounding soft tissue stranding.Trace adjacent fluid and mild adjacent fascial thickening. 2. Mild intrapelvic fluid. 3. No perforation, discrete drainable abscess or free intraperitoneal air. 4. Right nephrolithiasis, 2.4 mm nonobstructing stone, stable. 5. Collapsed left ovarian follicle. Electronically Signed: Hawa Castañeda MD at 20:27 EST Reading Location ID and State: [facility] / [place] Tel , Service support , D/C Instructions Discharge Diet: Light diet - advance as tolerated Discharge Activity: Return to Normal Activity and May Shower May shower in (days): 1 Ice area for (Minutes): 30 Lifting Restrictions: No lifting over 20 pounds for about 4 weeks Call your doctor if your incision/area has: Continuous Slow Oozing, Sudden Increased Bleeding, Increased Pain/ Swelling, Increased Redness, Foul Smelling Discharge and Swelling at the incision site Call your doctor if you observe: Fever of 101 or Higher Remove Dressing in: leave until fall off Cleanse incision/area with: Soap & Water DC O2, CPAP, BIPAP Needs Home O2 Discharge instructions: No DC home with Oxygen: No Please Follow Up With: Tito Plascencia MD When: 2 weeks Meaningful Use Info Meaningful Use Meaningful Use Diagnoses (Choose all that apply): None applicable Ischemic Stroke Statin Dosing Therapy Reference: STATIN DOSE THERAPY REFERENCE: * Patients > 75 years receive moderate or high dose statin therapy. * Patients 75 years or YOUNGER should receive HIGH intensity statin dose unless contraindicated. You will be required to document reason for non-treatment if statin daily dose does not meet guidelines. HIGH DOSE STATIN THERAPY DAILY Atorvastatin > than or = to 40 mg Rosuvastatin > than or = to 20 mg Amlodipine + Atorvastatin > than or = to 2.5/40 mg Ezetimibe + Simvastatin 10/80 mg Simvastatin 80mg Discharge Plan Admission Admit Date/Time: 04/10/24 22:33 Primary Reason for Your Visit: Acute appendicitis Attending Provider: Tito Plascencia Primary Care Provider: Care Physician,No Primary Discharge Orders/Prescriptions Prescriptions: New oxycodone-acetaminophen [Percocet] 5-325 mg tablet 1 tab PO Q8H PRN (Reason: pain) 3 Days Qty: 7 0RF Referrals / Follow Up: Care Physician,No Primary [Primary Care Provider] - Disposition Disposition (needs filled in before D/C Order can be placed): Home, Self Care
--- NOTE | 2024-04-11 08:50 | CASEMGMT ---
HAYLEY CM into pt room to discuss dc planning, pt sitting up in bed with at bedside. Pt does not have a PCP. Provided pt with a local healthcare directory pamphlet. Pt denies need for assistance with setting up PCP. Pt has transportation home and denies any homegoing needs.
[2024-04-11 09:55] VITALS: BP 88/55; PULSE 90; RESP 16; TEMP 36.8; O2SAT 99
[2024-04-11 09:56] VITALS: BP 102/57
== END 2024-04-11 11:16 | disposition home or self-care (01) ==
LOC: ED 20:24 → MS3 20:49
PROVIDERS: Admitting Provider Surgery; Emergency Provider Emergency Medicine; Visit Provider Surgery
PROC: 0DTJ4ZZ Resection of Appendix, Percutaneous Endoscopic Approach (ICD-10-PCS; CPT 44970; principal; 2024-04-10 20:55)
DX: K35.80 Unspecified acute appendicitis (principal); R00.0 Tachycardia, unspecified; R19.7 Diarrhea, unspecified
CPT/HCPCS: 44970; 00840; 36415; 74177; 80048; 80053; 80076; 84703; 85025; 88304; 93005; 94668; 96361; 96365; 96375; 99221; 99285; Q9967; A4216; G0378; J2405

== ENCOUNTER → 2024-06-10 | Outpatient (CLI) | payer OTHER, SELFPAY ==
--- NOTE | 2024-06-10 08:28 | BI_ITS ---
PROCEDURE: SCRN MAMM (CAD)W/ATTILA BILAT REASON FOR EXAM: F, Age 49 y/o , SCREENING. No family history of breast cancer. TECHNIQUE: Bilateral screening digital breast tomosynthesis with 2D and 3D images. Computer aided detection. COMPARISON: 09/10/2020 FINDINGS: The breasts are extremely dense which lowers the sensitivity of mammography. The mammogram demonstrates that the patient has dense breasts. Supplemental screening with whole breast ultrasound or MRI may be considered for further evaluation. There is an asymmetry in the central left breast at posterior depth visualized on the CC view. There is questionable distortion in the lateral right breast at middle depth visualized on the CC view. BI/SCRN MAMM (CAD)W/ATTILA BILAT IMPRESSION: 1. The asymmetry in the central left breast at posterior depth requires furthe r evaluation. Recommend diagnostic mammogram of the left breast and ultrasound on the day of diagnostic if indicated. 2. The questionable distortion in the lateral right breast at middle depth req uires further evaluation. Recommend diagnostic mammogram of the right breast and ultrasound on the day of diagnostic if indica anuradha. BI-RADS 0: INCOMPLETE - NEED ADDITIONAL IMAGING EVALUATION. Follow-up code: Additional Views obtained/call backs The patient will be notified of the results by letter. Reading Location: [id number]
[2024-06-10 09:08] LABS: Absolute Lymphocyte Count 2.02 X10^3/uL (0.83-4.51); Absolute Neutrophil Count 3.7 X10^3/uL (2.0-7.7); Basophil# 0.05 X10^3/uL; Basophil% 0.8 % (0-1); Eosinophil# 0.09 X10^3/uL; Eosinophils% 1.4 % (0-5); Hemoglobin 12.5 g/dL (12.0-15.0); Lymphocyte # 2.02 X10^3/ul (0.83-4.51); Lymphocyte % 31.8 % (19-41); Mean Corp Hgb Conc 33.8 g/dL (32-36); Mean Corpuscular Hgb 27.5 pg (27.0-32.0); Mean Corpuscular Volume 81.3 fL (81-99); Mean Platelet Vol. 8.7 fl (6.2-12.0); Monocyte# 0.53 X10^3/uL; Monocyte% 8.3 % (0-10); NRBC Flagged by Analyzer 0 % (0-5); Neutrophil # 3.66 X10^3/uL (2.7-7.7); Neutrophil % 57.5 % (47-70); Platelet Count 348 K/mm3 (150-450); RBC Distribution Width CV 14.9 % (11.6-14.6); Red Blood Count 4.55 M/mm3 (4.2-5.4); White Blood Count 6.4 K/mm3 (4.4-11.0)
[2024-06-10 09:31] LABS: ALB/GLOB Ratio 1.6 RATIO (0.9-2.4); AST(SGOT) 25 U/L (<=31); Alanine Aminotransfer ALT/SGPT 35 U/L (<=34); Albumin, Serum 4.3 g/dL (3.5-5.0); Alkaline Phosphatase 94 U/L (35-104); Anion Gap 10 (5-15); BUN 12 mg/dL (4-19); Calcium,Total 9.6 mg/dL (7.6-11.0); Carbon Dioxide 22.6 mmol/L (21.0-32.0); Chloride 105 mmol/L (98-108); Cholesterol 199 mg/dL (<=200); Creatinine, Serum 0.75 mg/dL (0.70-1.20); EST Glomerular Filtration Rate 97 (>60); Globulin 2.7 g/dL (2.2-4.2); Glucose 105 mg/dL (70-99); High Density Lipoprotein 41 mg/dL; Low Density Lipoprotein Calc. 133 mg/dL; Potassium 3.8 mmol/L (3.3-5.1); Sodium Level 138 mmol/L (133-145); Total Bilirubin 0.97 mg/dL (0.00-1.30); Triglycerides 123 mg/dL; Very Low Density Lipoprotein 25 mg/dL (5-40); cholesterol:hdl ratio screen 4.81
[2024-06-10 17:00] LABS: Xtra Tube EP Lab EXTRA TUBE
== END | disposition home or self-care (01) ==
PROVIDERS: PCP Internal Medicine; Referring Provider Internal Medicine; Visit Provider Internal Medicine
DX: Z12.31 Encounter for screening mammogram for malignant neoplasm of breast (principal); Z13.6 Encounter for screening for cardiovascular disorders; Z90.49 Acquired absence of other specified parts of digestive tract
CPT/HCPCS: 36415; 77063; 77067; 80053; 80061; 85025

== ENCOUNTER → 2024-06-13 | Outpatient (CLI) | payer OTHER, SELFPAY ==
--- NOTE | 2024-06-13 09:27 | US_ITS ---
PROCEDURE: DIAG MAMM W/CAD, BILAT; BREAST LIMITED UNILATERAL 06/13/2024 REASON FOR EXAM: F, Age 49 y/o, presents for callback from screening for bilateral breast findings seen on examination of 06/10/2024.No family history of breast cancer. TECHNIQUE: Bilateral diagnostic digital breast tomosynthesis with 2D and 3D images. Computer aided detection. Targeted bilateral breast ultrasound. COMPARISON: 06/10/2024, 09/10/2020 FINDINGS: MAMMOGRAM: TISSUE DENSITY: The breasts are heterogeneously dense which may obscure small masses. RIGHT BREAST: Follow-up examination performed for the questionable architectural distortion seen in the lateral right breast at middle depth on examination of 06/10/2024. On the present examination, the architectural distortion in the lateral right breast at middle depth does not persist. LEFT BREAST: Follow-up examination performed for the asymmetry seen in the slightly inner left breast at posterior depth on examination of 06/10/2024. On the present examination, the asymmetry in the slightly inner left breast at posterior depth persist. ULTRASOUND: Ultrasound was targeted to the bilateral breastwas performed. RIGHT BREAST: There is no sonographic correlate. However, there are some mildly dilated ducts seen at 9 o'clock 3 cm from the nipple. Also, there is a 0.5 x 0.5 x 0.5 cm cyst at 9 o'clock 4 cm from the nipple and another 0.5 x 0.4 x 0.3 cm cyst at 6 o'clock 3 cm from the nipple. LEFT BREAST: There is a 0.6 x 0.5 x 0.2 cm cyst at 7 o'clock 4 cm from the nipple, this is the likely correlate for the mammographic finding. US/Breast Limited Unilateral IMPRESSION: 1. There is no evidence of malignancy in either breast. 2. Benign bilateral breast cysts. BI-RADS 2: BENIGN. RECOMMEND ANNUAL MAMMOGRAPHIC SCREENING. Normal interval followup mammograms are recommended in 12 months. A letter with findings and recommendations will be mailed to the patient. ASSESSMENT: BIRADS 2 BENIGN FINDING RECOMMENDATION: 1: ROUTINE ANNUAL FOLLOW-UP Bilateral in 1 Year Reading Location: [id number]
== END | disposition home or self-care (01) ==
LOC: OPBI 09:23
PROVIDERS: PCP Internal Medicine; Referring Provider Internal Medicine; Visit Provider Internal Medicine
DX: R92.8 Other abnormal and inconclusive findings on diagnostic imaging of breast (principal); N64.89 Other specified disorders of breast
CPT/HCPCS: 76642; 77062; 77066; G0279

== ENCOUNTER 2024-07-18 07:10 | Day surgery (SDC) | payer SELFPAY, OTHER ==
--- NOTE | 2024-07-17 13:55 | PAT.ANESEVAL ---
Pre-Assessment Diagnosis/Proposed Procedure Planned Operative Procedure(s): CSCOPE Anesthesia History Anesthesia History - channel opener outsoles: Anesthesia History - channel opener outsoles Hx Hospitalization Yes: APPENDECTOMY 07/17/24 10:38 Any Problems With Anesthesia No 07/17/24 10:38 Cholinesterase deficiency No 07/17/24 10:38 You/Your Family Experience No 07/17/24 10:38 fever (hyperthermia) with Relationship Recent Exposure to Contagious Disease Does patient have nerve No 07/17/24 10:38 stimulator Patient instructed to have device shut off --Does patient have Pacemaker or ICD? When Was Last Pacemaker Check QUESTION #4 FULL TEXT: You/Your Family Experience fever (hyperthermia) with Anesthesia Last Oral Intake Last Oral intake: Last Oral Intake NPO since Meds taken in AM with sips of water? Meds patient instructed to take am of surgery PONV PONV - channel opener outsoles: PONV - channel opener outsoles Female Yes 07/17/24 10:38 HX of Motion Sickness Yes 07/17/24 10:38 HX of N/V After Surgery No 07/17/24 10:38 Non-Smoker Yes 07/17/24 10:38 Duration of Surgery greater No 07/17/24 10:38 than 60 minutes Number of Risk Factors 3 07/17/24 10:38 PONV Score Moderate Risk 07/17/24 10:38 Height & Weight Height & Weight: Anesthesia: Height & Weight Height 4 ft 10 in 07/10/24 08:12 Respiratory Assessment Respiratory Assessment - channel opener outsoles: Respiratory Tract Infection Hx - channel opener outsoles Hx Respiratory Tract Infection No 07/17/24 10:38 STOP Sleep Apnea STOP Sleep Apnea - channel opener outsoles: STOP Sleep Apnea - channel opener outsoles Hx Hypertension No 07/17/24 10:38 Hx Sleep Apnea No 07/17/24 10:38 CPAP BIPAP Do you snore loudly (louder No 07/17/24 10:38 than talking or can be heard Do you often feel tired/ No 07/17/24 10:38 fatigued/ sleepy during daytime? Has anyone observed you stop No 07/17/24 10:38 breathing during sleep? STOP Results Negative 07/17/24 10:38 QUESTION #5 FULL TEXT : Do you snore loudly (louder than talking or can be heard through closed doors)? Tobacco Use History Tobacco Use History - channel opener outsoles: Tobacco Use History - channel opener outsoles Tobacco Use Smoking Status Never smoker 07/17/24 10:38 Hx Tobacco Use No 07/17/24 10:38 Years Smoking Packs Smoked per Day Smoking Cessation Date was within the last 15 years Hx Smoking Cessation Date Hx Smoking Cessation Counseling Hematologic Medial History Hematologic Hx - channel opener outsoles: Hematologic Medical Hx - cut off tender glass Hx of Blood Transfusion No 07/17/24 10:38 Hx of Transfusion in last 3 No 07/17/24 10:38 Months Date of Last Transfusion (if within last 3 months) Ever experience any problems No 07/17/24 10:38 with transfusion(s)? Specify any problems Hx of Preganancy in last 3 No 07/17/24 10:38 Months Nurse Filling Out Transfusion DSCHRIBER 07/17/24 10:38 & Questions: Date: 07/17/24 07/17/24 10:38 Time: 10:40 07/17/24 10:38 Patient unable to answer at this time (ie. confused, unrespo /Reproduction History /Reproductive History - channel opener outsoles: /Reproductive Hx- channel opener outsoles Hx Now No 07/17/24 10:38 Gestational Age (in weeks): EDC: Hx Hx Para Hx Section SAB No 07/17/24 10:38 [facility] Medical History (Updated 07/17/24 @ 10:44 by Shante iM) Wears glasses Gastric reflux Heartburn Non-smoker Varicose vein of leg Pilar cyst of scalp Sinus tachycardia Enlarged uterus Menorrhagia with regular cycle Home Medications ?Medication ?Instructions ?Recorded ?Last Taken ?Type NK 07/17/24 Unknown History Allergy/AdvReac Type Severity Reaction Status Date / Time No Known Allergies Allergy Verified 07/17/24 10:37 Family History Father Cancer prostate Diabetes Mother Cancer skin Hypertension Surgical History (Updated 07/17/24 @ 10:44 by Shante Mi) Hx of appendectomy History of laparoscopic appendectomy S/P dilatation and curettage H/O tubal ligation Social History household members: spouse and children number of children: 6 current occupation: [employer] history of recent travel: No sexually active: Yes Smoking Status: Never smoker alcohol intake: never substance use type: does not use well-balanced diet: daily or most days what type of physical activity do you participate in: other frequency: 5-6 times per week seatbelt use: always do you feel safe at home: Yes additional social history: - Edward Audit: Pertinent Findings Pertinent Findings EKG Perinent findings: April 10, 2024. Sinus tachycardia at 122 bpm with occasional PVCs. ST and T wave abnormalities consider lateral ischemia. Recommendation Anesthesia Recommendation Anesthesia recommendation: F/U recommended (EKG done 04/10/2024 shows lateral ischemia likely due to tachycardia and ongoing infection. Surgery proceeded because it was an emergency. However this EKG is unacceptable prior to an elective procedure. She needs a repeat EKG and if it still shows ischemia the patient will need cardiac follow-up)
[2024-07-18] VITALS (9 sets, daily range): BP systolic 113–133; BP diastolic 71–86; PULSE 71–88; RESP 16; TEMP 36.1–36.8; O2SAT 97–100; BMI 28.7
[2024-07-18] MEDS: Lactated Ringers 1,000 ML 15 ML IV (07:53)
--- NOTE | 2024-07-18 08:26 | PCM.PRE.AN2 ---
ASA Classification* ASA Classification ASA Classification: 2 Assessment & Plan Anesthesia* Anesthesia Assessment Anesthesia Assessment: Discussed sedation and/or anesthesia options, risks, benefits, and alternatives with patient/parents/legal guardian/POA. Questions invited. The patient/parents/legal guardian/POA seems to understand and agrees to proceed with anesthesia plan. Reviewed the physical assessment, medical history, allergy history and patient home medications list prior to surgery/procedure/anesthetic and documented any changes. Performed airway and anesthesia risk assessments. Anesthesia Type Anesthesia Type: MAC History Source History Obtained from:: Patient and Chart Anesthesia Focused Assessment* Temperature: 98.2 F Pulse Rate: 88 Blood Pressure: 133/86 Respiratory Rate: 16 Pulse Ox: 100 Oxygen Delivery Method: Room Air Airway Assessment Mouth opens: >3 cm Mallampati Score: I Teeth Condition: Intact Neck Range of motion (ROM): Full ROM Focused Labs Anesthesia Preop lab: CBC WBC 6.4 K/mm3 (4.4-11.0) 06/10/24 08:56 06/10/24 RBC 4.55 M/mm3 (4.2-5.4) 06/10/24 08:56 06/10/24 Hgb 12.5 g/dL (12.0-15.0) 06/10/24 08:56 06/10/24 Hct 37.0 % (37-47) 06/10/24 08:56 06/10/24 Plt Count 348 K/mm3 (150-450) 06/10/24 08:56 06/10/24 CHEMISTRY Potassium 3.8 mmol/L (3.3-5.1) 06/10/24 08:50 06/10/24 Sodium 138 mmol/L (133-145) 06/10/24 08:50 06/10/24 BUN 12 mg/dL (4-19) 06/10/24 08:50 06/10/24 Creatinine 0.75 mg/dL (0.70-1.20) 06/10/24 08:50 06/10/24 Glucose 105 mg/dL (70-99) H 06/10/24 08:50 06/10/24 COAG Pre-Assessment Diagnosis/Proposed Procedure Planned Operative Procedure(s): CSCOPE Anesthesia History Anesthesia History - manager business intelligence: Anesthesia History - manager business intelligence Hx Hospitalization Yes: APPENDECTOMY 07/17/24 10:38 Any Problems With Anesthesia No 07/17/24 10:38 Cholinesterase deficiency No 07/17/24 10:38 You/Your Family Experience No 07/17/24 10:38 fever (hyperthermia) with Relationship Recent Exposure to Contagious No 07/18/24 07:45 Disease Does patient have nerve No 07/17/24 10:38 stimulator Patient instructed to have device shut off --Does patient have Pacemaker No 07/18/24 07:45 or ICD? When Was Last Pacemaker Check QUESTION #4 FULL TEXT: You/Your Family Experience fever (hyperthermia) with Anesthesia Last Oral Intake Last Oral intake: Last Oral Intake NPO since 22:00 07/18/24 07:45 Meds taken in AM with sips of No 07/18/24 07:45 water? Meds patient instructed to take am of surgery PONV PONV - manager business intelligence: PONV - manager business intelligence Female Yes 07/17/24 10:38 HX of Motion Sickness Yes 07/17/24 10:38 HX of N/V After Surgery No 07/17/24 10:38 Non-Smoker Yes 07/17/24 10:38 Duration of Surgery greater No 07/17/24 10:38 than 60 minutes Number of Risk Factors 3 07/17/24 10:38 PONV Score Moderate Risk 07/17/24 10:38 Height & Weight Height & Weight: Anesthesia: Height & Weight Height 4 ft 10 in 07/18/24 07:45 Weight: 62.4 kg 07/18/24 07:45 Body Mass Index (BMI) 28.7 07/18/24 07:45 Respiratory Assessment Respiratory Assessment - manager business intelligence: Respiratory Tract Infection Hx - manager business intelligence Hx Respiratory Tract Infection No 07/17/24 10:38 STOP Sleep Apnea STOP Sleep Apnea - manager business intelligence: STOP Sleep Apnea - manager business intelligence Hx Hypertension No 07/17/24 10:38 Hx Sleep Apnea No 07/17/24 10:38 CPAP BIPAP Do you snore loudly (louder No 07/17/24 10:38 than talking or can be heard Do you often feel tired/ No 07/17/24 10:38 fatigued/ sleepy during daytime? Has anyone observed you stop No 07/17/24 10:38 breathing during sleep? STOP Results Negative 07/17/24 10:38 QUESTION #5 FULL TEXT : Do you snore loudly (louder than talking or can be heard through closed doors)? 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 Specify any problems Hx of Preganancy in last 3 No 07/17/24 10:38 Months Nurse Filling Out Transfusion DSCHRIBER 07/17/24 10:38 & Questions: Date: 07/17/24 07/17/24 10:38 Time: 10:40 07/17/24 10:38 Patient unable to answer at this time (ie. confused, unrespo /Reproduction History /Reproductive History - manager business intelligence: /Reproductive Hx- manager business intelligence Hx Now No 07/17/24 10:38 Gestational Age (in weeks): EDC: Hx Hx Para Hx Section SAB No 07/17/24 10:38 Active Medications Active Medications: Current Medications Generic Name Dose Route Start Last Admin Trade Name Freq PRN Reason Stop Dose Admin Lactated Ringer's 1,000 mls @ 15 mls/hr 07/18/24 07:45 07/18/24 07:53 IV 15 mls/hr .Q48H LYDIA Administration PFSH Medical History (Updated 07/17/24 @ 10:44 by Shante Mi) Wears glasses Gastric reflux Heartburn Non-smoker Varicose vein of leg Pilar cyst of scalp Sinus tachycardia Enlarged uterus Menorrhagia with regular cycle Home Medications ?Medication ?Instructions ?Recorded ?Last Taken ?Type NK 07/17/24 Unknown History Allergy/AdvReac Type Severity Reaction Status Date / Time No Known Allergies Allergy Verified 07/18/24 07:45 Family History Father Cancer prostate Diabetes Mother Cancer skin Hypertension Surgical History (Updated 07/17/24 @ 10:44 by Shante Mi) Hx of appendectomy History of laparoscopic appendectomy S/P dilatation and curettage H/O tubal ligation Social History household members: spouse and children number of children: 6 current occupation: [employer] history of recent travel: No sexually active: Yes Smoking Status: Never smoker alcohol intake: never substance use type: does not use well-balanced diet: daily or most days what type of physical activity do you participate in: other frequency: 5-6 times per week seatbelt use: always do you feel safe at home: Yes additional social history: - Edward Review of Systems (Anesthesia) ROS Narrative System reviewed and no additional complaints, except as documented.
--- NOTE | 2024-07-18 08:30 | COLBX_PTH ---
PATIENT: MARIANNE TEJEDA LOC: EN U#:[id number] AGE/SX: 49/F ROOM: RE07/18/[address]: Dr. Tito Plascencia MD : 1975 BED: DIS: 07/18/2024 SPEC #: [id number] RECD: 07/18/24 11:49 STATUS: CLARA REQ #: [id number] NIKITA: 07/18/24 08:[address]: Tito Plascencia DEPT: SURGICAL PATHOLOGY RECD BY: Carlos Alberto Ruffin ENTERED: 07/18/24 13:26 SP TYPE: COLON BX OTHR DR: Dr. Aurea Ambriz MD Tissues: A - Ascending colon Procedures: Surgery Specimen Level IV HEADER OPERATION: Colonoscopy and polypectomy PRE-OP DIAGNOSIS: Positive Cologuard test TISSUE SUBMITTED: A- Ascending colon polyp MICROSCOPIC DIAGNOSIS A. Ascending colon, polyp, biopsy: * Tubular adenoma MICROSCOPIC DESCRIPTION Slides are reviewed. GROSS DESCRIPTION A. Received in formalin in a container labeled with the patient's name, date of , and ascending colon polyp is a 0.7 x 0.5 x 0.4 cm polypoid piece of michaels-pink mucosal tissue. The possible margin is inked black, and it is bisected. Submitted entirely in A1. [facility] 07/18/2024 CPT:[id number]
--- NOTE | 2024-07-18 08:33 | HP.PCM_ITS ---
HPI - General General Date of Admission: 07/18/24 Date of Service: 07/18/24 Chief Complaint: colonoscopy HPI Narrative The patient is a 49-year-old female who presents today for colonoscopy. She has never had a colonoscopy before. She recently underwent a Cologuard test which came back as positive. She denies any GI issues or problems. [facility] Medical History (Updated 07/17/24 @ 10:44 by Shante Mi) Wears glasses Gastric reflux Heartburn Non-smoker Varicose vein of leg Pilar cyst of scalp Sinus tachycardia Enlarged uterus Menorrhagia with regular cycle Home Medications ?Medication ?Instructions ?Recorded ?Last Taken ?Type NK 07/17/24 Unknown History Allergy/AdvReac Type Severity Reaction Status Date / Time No Known Allergies Allergy Verified 07/18/24 07:45 Family History Father Cancer prostate Diabetes Mother Cancer skin Hypertension Surgical History (Updated 07/17/24 @ 10:44 by Shante Mi) Hx of appendectomy History of laparoscopic appendectomy S/P dilatation and curettage H/O tubal ligation Social History household members: spouse and children number of children: 6 current occupation: [employer] history of recent travel: No sexually active: Yes Smoking Status: Never smoker alcohol intake: never substance use type: does not use well-balanced diet: daily or most days what type of physical activity do you participate in: other frequency: 5-6 times per week seatbelt use: always do you feel safe at home: Yes additional social history: - Edward Vital Signs Vital Signs Vital Signs: 07/18/24 07:45 07/18/24 07:45 07/18/24 08:29 Temperature 98.2 F 98.2 F Temperature Source Temporal Pulse Rate 88 88 Respiratory Rate 16 16 Respiratory Pattern Normal Blood Pressure 133/86 H 133/86 H Blood Pressure Mean 101 Blood Pressure Source Monitor Blood Pressure Position Semi-Fowlers Blood Pressure Location Right Arm Pulse Ox 100 100 Oxygen Delivery Method Room Air Room Air Weight Weight: 137 lb 9.095 oz Body Mass Index (BMI) 28.7 Physical Exam Const alert, oriented x3 and no apparent distress Assessment & Plan Assessment/Plan (1) Positive colorectal cancer screening using Cologuard test: PLAN: Plan colonoscopy today
--- NOTE | 2024-07-18 09:03 | PCM.POST.ANE ---
Anesthesia: Postop Eval I Current Vital Signs Temperature: 97 F Pulse Rate: 74 Blood Pressure: 121/71 Respiratory Rate: 16 Pulse Ox: 97 Oxygen Delivery Method: Room Air Assessment Airway patent: Yes Spontaneous unlabored respirations: Yes Mental status: Awake and Calm nausea: No Vomiting: No Anesthesia Complication: No Fluid Hydration Crystalloid volume administer (ml): 500 Total IV fluid infused: 500 Progress Note Anesthesia document: Postop Eval 1 completed: Yes
--- NOTE | 2024-07-18 09:08 | OP.CCLET_ITS ---
07/18/2024 Aurea Ambriz Md Re : Colonoscopy procedure for Joanie Lew Dear Pb This procedure was performed on Thursday, July 18, 2024. My impressions and recommendations are as follows: Impressions : - One 8 mm polyp in the ascending colon, removed with a hot snare. Resected and retrieved. - The examination was otherwise normal on direct and retroflexion views. Recommendations : - Discharge patient to home (ambulatory). - High fiber diet. - Await pathology results. - Repeat colonoscopy in 5 years for surveillance. - Return to my office PRN. - Continue present medications. My findings are described in the full procedure note, which is enclosed. If I can be of further assistance, please feel free to contact me at . Sincerely, Tito Plascencia MD 07/18/2024 9:07:45 AM This report has been signed electronically.
--- NOTE | 2024-07-18 09:08 | OP.COLON_ITS ---
Patient Name: Joanie Lew Procedure Date: 07/18/2024 8:25 AM Date of : 1975 Age: 49 Procedure: Colonoscopy Indications: Positive Cologuard test Providers: Tito Plascencia MD Referring MD: Aurea Ambriz Md Medicines: Monitored Anesthesia Care Patient Profile: Refer to note in patient chart for documentation of history and physical. Last Colonoscopy: none. The patient's first colonoscopy is today. Complications: No immediate complications. Estimated blood loss: Minimal. Procedure: Pre-Anesthesia Assessment: - Prior to the procedure, a History and Physical was performed, and patient medications and allergies were reviewed. The patient's tolerance of previous anesthesia was also reviewed. The risks and benefits of the procedure and the sedation options and risks were discussed with the patient. All questions were answered, and informed consent was obtained. Prior Anticoagulants: The patient has taken no anticoagulant or antiplatelet agents. ASA Grade Assessment: II - A patient with mild systemic disease. After reviewing the risks and benefits, the patient was deemed in satisfactory condition to undergo the procedure. After I obtained informed consent, the scope was passed under direct vision. Throughout the procedure, the patient's blood pressure, pulse, and oxygen saturations were monitored continuously. The colonoscope was introduced through the anus and advanced to the cecum, identified by appendiceal orifice and ileocecal valve. The ileocecal valve, appendiceal orifice, and rectum were photographed. The entire colon was well visualized. The colonoscopy was performed without difficulty. The patient tolerated the procedure well. The quality of the bowel preparation was adequate. Moderate Sedation: See the other procedure note for documentation of moderate sedation with intraservice time. Scope In: 8:45:22 AM Scope Withdrawal Time 0 hours 11 minutes 19 seconds Scope Out: 9:03:37 AM Total Procedure Duration Time 0 hours 18 minutes 15 seconds Findings: The perianal and digital rectal examinations were normal. An 8 mm polyp was found in the ascending colon. The polyp was semi-sessile. The polyp was removed with a hot snare. Resection and retrieval were complete. Verification of patient identification for the specimen was done by the nurse using the patient's name, date and medical record number. Estimated blood loss was minimal. The exam was otherwise without abnormality on direct and retroflexion views. Impression: - One 8 mm polyp in the ascending colon, removed with a hot snare. Resected and retrieved. - The examination was otherwise normal on direct and retroflexion views. Recommendation: - Discharge patient to home (ambulatory). - High fiber diet. - Await pathology results. - Repeat colonoscopy in 5 years for surveillance. - Return to my office PRN. - Continue present medications. Procedure Code(s): --- Professional --- 42737, Colonoscopy, flexible; with removal of tumor(s), polyp(s), or other lesion(s) by snare technique Diagnosis Code(s): --- Professional --- R19.5, Other fecal abnormalities D12.2, Benign neoplasm of ascending colon CPT copyright 2021 [employer]. All rights reserved. The codes documented in this report are preliminary and upon bending machine operator review may be revised to meet current compliance requirements. Tito Plascencia MD 07/18/2024 9:07:45 AM This report has been signed electronically. Number of Addenda: 0 Note Initiated On: 07/18/2024 8:25 AM
--- NOTE | 2024-07-18 09:09 | POSTOPAN2_ITS ---
Anesthesia Postop Eval I Sum Postop Eval Completion status Anesthesia document: Postop Eval 1 completed: Yes Anesthesia Postop Eval I Summary Anesthesia Postop Eval I Summary: Anesthesia Postop Eval I: Assessment Summary Airway patent Yes 07/18/24 09:04 MAIL HANDLERS [email or web address] Spontaneous unlabored Yes 07/18/24 09:04 MAIL HANDLERS [email or web address] respirations Mental status Awake,Calm 07/18/24 09:04 MAIL HANDLERS [email or web address] nausea No 07/18/24 09:04 MAIL HANDLERS [email or web address].OT Vomiting No 07/18/24 09:04 MAIL HANDLERS [email or web address] Anesthesia Postop Eval I: Fluid Summary Crystalloid volume administer 500 07/18/24 09:04 MAIL HANDLERS SUPERVISOR.OT (ml) Colloids volume administered ( ml) Blood Product volume administered (ml) Total IV fluid infused 500 07/18/24 09:04 MAIL HANDLERS [email or web address] Anesthesia Postop Eval I: Summary Notes Anesthesia Complication No 07/18/24 09:04 MAIL HANDLERS [email or web address] Anesthesia Complication Comment: Post-operative progress note Anesthesia: Postop Eval II Evaluation Mental status: Awake and Calm Pain Level: 0 nausea: No Vomiting: No Complications Anesthesia Complication: No
--- NOTE | 2024-07-18 09:09 | PCM.POSTANE2 ---
Anesthesia Postop Eval I Sum Postop Eval Completion status Anesthesia document: Postop Eval 1 completed: Yes Anesthesia Postop Eval I Summary Anesthesia Postop Eval I Summary: Anesthesia Postop Eval I: Assessment Summary Airway patent Yes 07/18/24 09:04 SENSOR [email or web address] Spontaneous unlabored Yes 07/18/24 09:04 SENSOR [email or web address] respirations Mental status Awake,Calm 07/18/24 09:04 SENSOR [email or web address] nausea No 07/18/24 09:04 SENSOR [email or web address].OT Vomiting No 07/18/24 09:04 SENSOR [email or web address] Anesthesia Postop Eval I: Fluid Summary Crystalloid volume administer 500 07/18/24 09:04 SENSOR [email or web address] (ml) Colloids volume administered ( ml) Blood Product volume administered (ml) Total IV fluid infused 500 07/18/24 09:04 SENSOR [email or web address] Anesthesia Postop Eval I: Summary Notes Anesthesia Complication No 07/18/24 09:04 SENSOR [email or web address] Anesthesia Complication Comment: Post-operative progress note Anesthesia: Postop Eval II Evaluation Mental status: Awake and Calm Pain Level: 0 nausea: No Vomiting: No Complications Anesthesia Complication: No
== END 2024-07-18 09:54 | disposition home or self-care (01) ==
LOC: EN 07:11 → AC 07:12
PROVIDERS: PCP Internal Medicine; Referring Provider Internal Medicine; Visit Provider Surgery
PROC: 0DJD8ZZ Inspection of Lower Intestinal Tract, Via Natural or Artificial Opening Endoscopic (ICD-10-PCS; CPT 45378; principal; 2024-07-18 08:25)
DX: D12.2 Benign neoplasm of ascending colon (principal); R19.5 Other fecal abnormalities; K21.9 Gastro-esophageal reflux disease without esophagitis; Z90.49 Acquired absence of other specified parts of digestive tract
CPT/HCPCS: 45385; 88305

== ENCOUNTER → 2024-07-23 | Outpatient (CLI) | payer SELFPAY, OTHER ==
--- NOTE | 2024-07-23 07:16 | US_ITS ---
PROCEDURE: ABDOMEN LIMITED (USABDL), 07/23/2024 REASON FOR EXAM: RUQ PAIN COMPARISON: 04/10/2024 ; note that images only are available for review, the report is not available at the time of the dictation. FINDINGS: Liver: Echogenic. 15.4 cm in length. Hypodensity in the hepatic dome seen on previous CT nonvisualized. Gallbladder: 3 mm echogenic nonshadowing polyp or tumefactive sludge, not evaluated with Doppler.. No definite shadowing stones, wall thickening or pericholecystic fluid. Reportedly, sonographic Jin's was negative. Biliary tree: Unremarkable. CBD measures 3 mm. Pancreas: Partially obscured by shadowing bowel gas, grossly unremarkable as visualized. Right kidney: Unremarkable. 11.4 cm in length. Other: No visualized free fluid. US/Abdomen Limited IMPRESSION: 1. No definite cholelithiasis or evidence of acute cholecystitis. No biliary di latation. If unexplained symptoms persist, consider CT. 2. Appearance of the hepatic parenchyma typically associated with hepatic steat osis. Correlate with clinical and laboratory evidence of chronic liver disease. 3. 3 mm gallbladder polyp versus gallbladder sludge not requiring specific foll ow-up per updated 2021 SRU recommendations. 4. Additional description as above. Reading Location: [facility]
== END | disposition home or self-care (01) ==
LOC: US 07:14
PROVIDERS: PCP Internal Medicine; Referring Provider Physician Assistant; Visit Provider Physician Assistant
DX: R10.11 Right upper quadrant pain (principal)
CPT/HCPCS: 76705